=== PATIENT | female | born 1985 ===

== ENCOUNTER 2021-05-24 21:22 | Outpatient (CLI) | payer OTHER ==
[2021-05-24 21:59] LABS: MICROSCOPIC INDICATED
== END 2021-05-24 22:40 | disposition home or self-care (01) ==
LOC: LDOP 21:22
PROVIDERS: ATTEND Obstetrics & Gynecology
DX: O09.93 Supervision of high risk pregnancy, unspecified, third trimester (principal); O26.893 Other specified pregnancy related conditions, third trimester; Z3A.36 36 weeks gestation of pregnancy
CPT/HCPCS: 59025; 81001; 87086

== ENCOUNTER 2021-06-04 05:24 | Inpatient (IN) | payer OTHER ==
[~2021-06-04] VITALS: Ht 160 cm; Wt 72.1 kg
[2021-06-04] MEDS ORDERED: LACTATED RINGERS 1,000 ML IVBOLUS ONE (05:30)
[2021-06-04] MEDS ORDERED: LACTATED RINGERS 1,000 ML IV SCH (05:30)
[2021-06-04] MEDS ORDERED: ONDANSETRON 2MG/ML, 2ML IVPush ONE (05:30)
[2021-06-04] MEDS ORDERED: SODIUM CITRATE/CITRIC ACID 30 ML UDC PO ONE (05:30)
[2021-06-04] MEDS ORDERED: METOCLOPRAMIDE 5 MG/ML, 2ML IV ONE (05:30)
[2021-06-04 05:33] VITALS: BP 132/84
[2021-06-04] MEDS ORDERED: METOCLOPRAMIDE 5 MG/ML, 2ML ONE (05:40)
[2021-06-04] MEDS ORDERED: SODIUM CITRATE/CITRIC ACID 15 ML UDC ONE (05:40)
[2021-06-04] MEDS ORDERED: OXYTOCIN 30U/ 0.9% NaCL 500ML 500 ML ONE (05:40)
[2021-06-04] MEDS ORDERED: NEWBORN KIT ONE ×2 (05:45→07:27)
[2021-06-04] MEDS ORDERED: PLEASE ENTER ALLERGIES MC SCH ×2 (06:00→09:30)
[2021-06-04 06:08] LABS: BASOPHILS % (AUTO) 0 % (0-1); EOSINOPHILS % (AUTO) 1 % (1-7); LYMPHOCYTES % (AUTO) 38 % (22-44); MEAN CORPUSCULAR HEMOGLOBIN 29.7 pg (27.0-34.8); MEAN CORPUSCULAR HGB CONC 35.7 g/dL (32.4-35.8); MEAN PLATELET VOLUME 9.1 fL (7.4-10.4); MONOCYTES % (AUTO) 4 % (2-9); NEUTROPHILS % (AUTO) 57 % (42-75); PLATELET COUNT 245 x10^3/uL (130-400); RED BLOOD COUNT 3.79 x10^6/uL (3.82-5.3); RED CELL DISTRIBUTION WIDTH 14.5 % (9.6-15.2)
[2021-06-04] MEDS ORDERED: FENTANYL PF 100 MCG/2ML ONE (07:24)
[2021-06-04] MEDS ORDERED: BUPIVACAINE 0.25% ONE (07:32)
[2021-06-04] MEDS ORDERED: CEFAZOLIN 1,000 MG ONE ×2 (08:13)
[2021-06-04] MEDS ORDERED: ONDANSETRON 2MG/ML, 2ML ONE (08:14)
[2021-06-04] MEDS ORDERED: OXYTOCIN 10 UNITS/ML, 1ML ONE ×2 (08:14)
[2021-06-04] MEDS ORDERED: HYDROmorphone 1 MG/ML, 1ML INJ ONE (08:14)
[2021-06-04] MEDS ORDERED: EPHEDRINE 50 MG/ML, 1ML ONE (08:14)
[2021-06-04] MEDS ORDERED: ONDANSETRON 2MG/ML, 2ML IV PRN (09:00)
[2021-06-04] MEDS ORDERED: morphine SULFATE 10 MG/ML, 1ML IVPush PRN (09:00)
[2021-06-04] MEDS ORDERED: OXYcodone/APAP 5/325MG TABLET PO PRN (09:00)
[2021-06-04] MEDS ORDERED: ACETAMINOPHEN 325 MG TABLET PO PRN (09:00)
[2021-06-04] MEDS ORDERED: SIMETHICONE 80 MG CHEW TAB PO PRN (09:00)
[2021-06-04] MEDS ORDERED: MEPERIDINE/PF 50 MG/ML IVPush PRN (09:00)
[2021-06-04] MEDS: OXYTOCIN 30U/ 0.9% NaCL 500ML 500 ML IV SCH ×2 (09:00→19:51)
[2021-06-04] MEDS: LACTATED RINGERS 1,000 ML IV SCH ×4 (09:00→19:51)
[2021-06-04] MEDS ORDERED: CALCIUM CARBONATE 500 MG TAB.CHEW PO PRN (09:00)
[2021-06-04] MEDS ORDERED: MISOPROSTOL 200 MCG TABLET PR PRN (09:00)
[2021-06-04 10:45] VITALS: BP 135/75
[2021-06-04 10:53] LABS: CREATININE 0.69 mg/dL (0.55-1.02)
[2021-06-04] MEDS: KETOROLAC 30 MG/1 ML IV SCH ×2 (11:56→17:49)
[2021-06-04 14:00] VITALS: BP 127/77
[2021-06-04] MEDS: OXYcodone/APAP 5/325MG TABLET PO PRN ×2 (15:34→21:07)
[2021-06-04 18:17] LABS: BASOPHILS % (AUTO) 0 % (0-1); EOSINOPHILS % (AUTO) 0 % (1-7); LYMPHOCYTES % (AUTO) 20 % (22-44); MEAN CORPUSCULAR HEMOGLOBIN 28.9 pg (27.0-34.8); MEAN PLATELET VOLUME 8.7 fL (7.4-10.4); MONOCYTES % (AUTO) 4 % (2-9); NEUTROPHILS % (AUTO) 75 % (42-75); PLATELET COUNT 198 x10^3/uL (130-400); RED BLOOD COUNT 3.38 x10^6/uL (3.82-5.3); RED CELL DISTRIBUTION WIDTH 14.6 % (9.6-15.2)
[2021-06-04 20:50] VITALS: BP 120/71
[2021-06-04] MEDS: PRENATAL VIT/IRON/FA 1 EACH TABLET PO SCH (21:06)
[2021-06-04] MEDS: DOCUSATE 100 MG CAPSULE PO PRN (21:07)
[2021-06-04] MEDS: ENOXAPARIN 40 MG/0.4 ML SQ SCH (21:08)
[2021-06-05] MEDS: KETOROLAC 30 MG/1 ML IV SCH ×4 (00:27→20:07)
[2021-06-05 00:31] VITALS: BP 128/74
[2021-06-05] MEDS: ACETAMINOPHEN 325 MG TABLET PO PRN ×3 (00:57→20:07)
[2021-06-05] MEDS: LACTATED RINGERS 1,000 ML IV SCH ×5 (01:18→17:00)
[2021-06-05 04:20] VITALS: BP 110/74
[2021-06-05] MEDS: OXYTOCIN 30U/ 0.9% NaCL 500ML 500 ML IV SCH ×2 (05:00→15:00)
[2021-06-05] MEDS: LEVOTHYROXINE 75 MCG TABLET HOMEMEDPO SCH (06:00)
[2021-06-05 08:15] VITALS: BP 128/77
[2021-06-05] MEDS: PRENATAL VIT/IRON/FA 1 EACH TABLET PO SCH (09:00)
[2021-06-05] MEDS: OXYcodone/APAP 5/325MG TABLET PO PRN (10:01)
[2021-06-05 13:15] VITALS: BP 130/84
[2021-06-05] MEDS: DOCUSATE 100 MG CAPSULE PO PRN (20:06)
[2021-06-05] MEDS: ENOXAPARIN 40 MG/0.4 ML SQ SCH (20:07)
[2021-06-05 20:15] VITALS: BP 127/83
[2021-06-06] MEDS: OXYTOCIN 30U/ 0.9% NaCL 500ML 500 ML IV SCH ×3 (02:09→21:00)
[2021-06-06] MEDS: LACTATED RINGERS 1,000 ML IV SCH ×7 (02:09→21:04)
[2021-06-06] MEDS: KETOROLAC 30 MG/1 ML IV SCH ×2 (02:17→08:06)
[2021-06-06] MEDS: LEVOTHYROXINE 75 MCG TABLET HOMEMEDPO SCH (05:28)
[2021-06-06 08:03] LABS: BASOPHILS % (AUTO) 0 % (0-1); EOSINOPHILS % (AUTO) 1 % (1-7); LYMPHOCYTES % (AUTO) 26 % (22-44); MEAN CORPUSCULAR HEMOGLOBIN 29.3 pg (27.0-34.8); MEAN CORPUSCULAR HGB CONC 35.1 g/dL (32.4-35.8); MEAN PLATELET VOLUME 8.3 fL (7.4-10.4); MONOCYTES % (AUTO) 5 % (2-9); NEUTROPHILS % (AUTO) 67 % (42-75); PLATELET COUNT 220 x10^3/uL (130-400); RED BLOOD COUNT 2.93 x10^6/uL (3.82-5.3); RED CELL DISTRIBUTION WIDTH 14.4 % (9.6-15.2)
[2021-06-06] MEDS: DOCUSATE 100 MG CAPSULE PO PRN ×2 (08:05→19:41)
[2021-06-06] MEDS: ACETAMINOPHEN 325 MG TABLET PO PRN ×2 (08:05→13:00)
[2021-06-06] MEDS: PRENATAL VIT/IRON/FA 1 EACH TABLET PO SCH (08:05)
[2021-06-06 08:15] VITALS: BP 148/91
[2021-06-06 08:18] LABS: ALANINE AMINOTRANSFERASE 17 U/L (12-78); ANION GAP 7 mmol/L (5-15); CALCIUM 8.3 mg/dL (8.5-10.1); CHLORIDE 106 mmol/L (98-107); CREATININE 0.59 mg/dL (0.55-1.02)
[2021-06-06 08:20] LABS: ALKALINE PHOSPHATASE 168 U/L (45-117); BILIRUBIN,TOTAL 0.1 mg/dL (0.2-1.0); TOTAL PROTEIN 6.1 g/dL (6.4-8.2)
[2021-06-06 09:46] LABS: CREATININE,URINE RANDOM 24.6 mg/dL
[2021-06-06 10:00] VITALS: BP 129/77
[2021-06-06 12:00] VITALS: BP 148/90
[2021-06-06] MEDS: IBUPROFEN 800 MG TABLET PO PRN ×2 (14:40→23:56)
[2021-06-06 14:45] VITALS: BP 156/91
[2021-06-06 17:00] VITALS: BP 129/85
[2021-06-06 19:45] VITALS: BP 132/75
[2021-06-06] MEDS: ENOXAPARIN 40 MG/0.4 ML SQ SCH (21:00)
[2021-06-07] VITALS: BP 112/67
[2021-06-07 04:00] VITALS: BP 132/82
[2021-06-07] MEDS: LACTATED RINGERS 1,000 ML IV SCH (05:45)
[2021-06-07] MEDS: OXYTOCIN 30U/ 0.9% NaCL 500ML 500 ML IV SCH (05:45)
[2021-06-07] MEDS: LEVOTHYROXINE 75 MCG TABLET HOMEMEDPO SCH (05:57)
[2021-06-07] MEDS ORDERED: IBUP-1223 PO (05:58)
[2021-06-07 07:10] VITALS: BP 131/88
[2021-06-07] MEDS: IBUPROFEN 800 MG TABLET PO PRN (08:17)
[2021-06-07] MEDS: PRENATAL VIT/IRON/FA 1 EACH TABLET PO SCH (08:17)
== END 2021-06-07 11:41 | disposition home or self-care (01) | DRG 783 ==
LOC: LDIP 05:24 → 2NW 10:30
PROVIDERS: ADMIT Obstetrics & Gynecology; ATTEND Obstetrics & Gynecology
PROC: 10D00Z1 Extraction of Products of Conception, Low, Open Approach (ICD-10-PCS; principal; 2021-06-04)
PROC: 0UB70ZZ Excision of Bilateral Fallopian Tubes, Open Approach (ICD-10-PCS; 2021-06-04)
DX: O34.211 Maternal care for low transverse scar from previous cesarean delivery (principal); O24.02 Pre-existing type 1 diabetes mellitus, in childbirth; O44.03 Complete placenta previa NOS or without hemorrhage, third trimester; O13.4 Gestational [pregnancy-induced] hypertension without significant proteinuria, complicating childbirth; O99.284 Endocrine, nutritional and metabolic diseases complicating childbirth; H54.61 Unqualified visual loss, right eye, normal vision left eye; E03.9 Hypothyroidism, unspecified; E10.319 Type 1 diabetes mellitus with unspecified diabetic retinopathy without macular edema; Z37.0 Single live birth; Z3A.38 38 weeks gestation of pregnancy; Z20.822 Contact with and (suspected) exposure to COVID-19
CPT/HCPCS: 36415; 80053; 82565; 82570; 84156; 85025; 86592; 86850; 86900; 87635; 88302; G0378; J0690; J1170; J1650; J1885; J2405; J3010; J2590